=== PATIENT | male | born 1985 | race Caucasian/White ===

== ENCOUNTER 2018-10-06 23:38 | Emergency (ER) | payer SELFPAY ==
[2018-10-07] MEDS ORDERED: HYDROcodone/Acetaminophen 10/325 mg Tablet ONE (00:15)
[2018-10-07] MEDS ORDERED: Ibuprofen 800 MG TAB ONE ×3 (00:15→00:17)
[2018-10-07 00:18] LABS: Bilirubin Negative (Negative); Blood, Urine Trace (Negative); Clarity Clear (Clear); Glucose, Urine (Dipstick) Negative (Negative); Leukocyte Negative (Negative); Nitrite Negative (Negative); Protein, Urine (Dipstick) Negative (Neg-Trace); Specific Gravity, Urine 1.015 (1.005-1.030); Urobilinogen 0.2 mg/dL (0.2-1.0)
[2018-10-07 00:26] LABS: RBC/HPF 0-3 HPF (0-3); Squamous Epithelial 0-3 HPF (0-3); WBC/HPF 0-3 HPF (0-3)
[2018-10-07] MEDS ORDERED: cefTRIAXone\\ROCEPHIN 500 MG VIAL ONE (00:39)
[2018-10-07] MEDS ORDERED: Azithromycin 250 MG TAB ONE (00:39)
[2018-10-08 23:54] LABS: Chlamydia by PCR Not Detected (NotDetected); GC by PCR Not Detected (NotDetected)
== END 2018-10-07 00:55 | disposition short-term general hospital (02) ==
LOC: BURERS 23:38
DX: N44.8 Other noninflammatory disorders of the testis (principal); N50.811 Right testicular pain; Z20.2 Contact with and (suspected) exposure to infections with a predominantly sexual mode of transmission; E03.9 Hypothyroidism, unspecified; K21.9 Gastro-esophageal reflux disease without esophagitis; Z87.891 Personal history of nicotine dependence; F41.9 Anxiety disorder, unspecified; Z79.899 Other long term (current) drug therapy
CPT/HCPCS: 81003; 81015; 87491; 87591; 96372; J0696